=== PATIENT | male | born 1980 | race Caucasian/White ===

== ENCOUNTER 2017-12-26 20:13 | Emergency (ER) | payer OTHER ==
[~2017-12-26] VITALS: Ht 182 cm; Wt 94.3 kg
[2017-12-26] MEDS ORDERED: HYDROCODONE-AP1 EAC6 PO (20:54)
[2017-12-26] MEDS ORDERED: KEFLEX500 M1 PO (20:54)
[2017-12-26 21:05] VITALS: BP 158/98
== END 2017-12-26 21:05 | disposition home or self-care (01) ==
LOC: M.ERS 20:13
DX: S61.214A Laceration without foreign body of right ring finger without damage to nail, initial encounter (principal); S61.212A Laceration without foreign body of right middle finger without damage to nail, initial encounter; W26.8XXA Contact with other sharp object(s), not elsewhere classified, initial encounter; Y93.89 Activity, other specified; Y92.89 Other specified places as the place of occurrence of the external cause; Y99.0 Civilian activity done for income or pay